=== PATIENT | female | born 1970 | race Caucasian/White ===

== ENCOUNTER 2016-08-16 16:14 | Emergency (ER) | payer MEDICAID ==
[2016-08-16 17:25] VITALS: BP 105/72
== END 2016-08-16 17:25 | disposition home or self-care (01) ==
LOC: ED 16:14
DX: M19.072 Primary osteoarthritis, left ankle and foot (principal); M19.071 Primary osteoarthritis, right ankle and foot; M19.032 Primary osteoarthritis, left wrist; M19.031 Primary osteoarthritis, right wrist; M17.0 Bilateral primary osteoarthritis of knee